=== PATIENT | male | born 1975 | race Caucasian/White ===

== ENCOUNTER 2020-02-07 02:35 | Outpatient (CLI) | payer OTHER, SELFPAY ==
[2020-02-07 18:16] LABS: SARS-CoV-2 RNA PCR Negative
== END 2020-02-07 02:36 | disposition home or self-care (01) ==
LOC: ANHCOVIDDT 02:36
PROVIDERS: PCP Physician Assistant; Visit Provider Urology
DX: Z01.812 Encounter for preprocedural laboratory examination (principal); Z20.828 Contact with and (suspected) exposure to other viral communicable diseases
CPT/HCPCS: 87635; C9803; U0003

== ENCOUNTER 2020-02-09 01:50 | Day surgery (SDC) | payer OTHER, SELFPAY ==
[2020-02-01 08:42] VITALS: BMI 25.1
[2020-02-09] VITALS (7 sets, daily range): BP systolic 120–141; BP diastolic 83–99; PULSE 66–92; RESP 14–16; TEMP 36.4–36.6; O2SAT 99–100
[2020-02-09] MEDS: ACETAMINOPHEN 500 MG TABLET 1000 MG PO (10:14)
[2020-02-09] MEDS: LACTATED RINGERS 1,000 ML 30 ML IV CONT ×2 (10:25→13:37)
--- NOTE | 2020-02-09 10:50 | WPDANESEPPF ---
Anes - Initial Pre Proc Eval Procedure: Operation Date: 02/09/20 12:00 Proposed Procedures p Right Spermatocelectomy, Possible Orchiopexy, - Abdirahman Dykes MD s Bilateral Vasectomy - Abdirahman Dykes MD Date/Time: 02/09/20 10:50 Surgeon: Abdirahman Dykes MD Pre Op Diagnosis: right spermatocele Patient Data Age: 44 Gender: M Height: 5 ft 10 in Weight: 79.3 kg Last Vital Signs Temp 36.6 C 02/09/20 10:32 Pulse 66 02/09/20 10:32 Resp 16 02/09/20 10:32 BP 141/92 H 02/09/20 10:32 Pulse Ox 99 02/09/20 10:32 Allergies Allergy/AdvReac Type Severity Reaction Status Date / Time No Known Allergies Allergy Verified 02/09/20 10:05 Home Medications Medication Instructions Recorded Confirmed Type No Home Medications 02/01/20 02/09/20 History Patient hx anesthesia problems: none Family hx anesthesia problems: none [facility] Past Medical History Medical History Ex-smoker Surgical History Surgical History (Updated 02/09/20 @ 10:51 by Sriram Rosas MD) History of surgery on wrist Social History Social History Smoking packs per day: 1 Smoking cigarettes per day: 20.0 Years smoked: 17 Smoking pack-years: 17.00 Smoking end date: 01/31/10 Living arrangements: with family Spiritual care concerns: No Anes - Eval Final PreProcedure Day of Procedure 02/09/20 10:50 Patient weight: normal Heart: regular rate and rhythm Lungs: clear to auscultation Airway: Mallampati scale class 1 Neurological: alert and oriented Last oral intake: >/= 8 hours ASA classification: II Emergent: no Anesthetic plan: proceed Anesthesia type and monitoring: general LMA and standard monitoring Informed Consent: The patient's anesthetic plan and its attendant risks and benefits were discussed with the patient/family/POA. Questions were solicited and answers provided to the satisfaction of the patient/family/POA.
--- NOTE | 2020-02-09 12:17 | WPDHPUPDATE1 ---
History and Physical Update Update Date/Time: 02/09/20 12:17 History and Physical has been reviewed, including an updated exam of the patient. There are NO changes in the patient's condition. Risks, benefits, and alternatives have been discussed and questions answered. Patient agrees to proceed with procedure.
[2020-02-09] MEDS: ceFAZolin 2 GM/D5W 50 ML 2 GM/50 ML BAG IVPB (12:23)
[2020-02-09] MEDS: BACITRACIN OINTMENT 15 GM TUBE 1 APPLIC TOPICAL (13:21)
--- NOTE | 2020-02-09 13:31 | PM.PROC ---
Procedure Note - Detailed Date of procedure: 02/09/20 Pre-op diagnosis: right spermatocele Post-op diagnosis: same Procedure performed: - Right spermatocelectomy - bilateral vasectomy Description of procedure: informed consent was obtained. Patient taken to operating room. He was shaved he was prepped in the normal sterile fashion. Preoperative IV antibiotics were given. A 4cm midline scrotal raphe incision was made. We dissected down to the right hemiscrotum where the right testicle was delivered through the incision. The tunica vaginalis was opened identifying a normal-appearing testicle with a 3cm spermatocele. We carefully dissected the spermatocele away from the epididymis and testicle, taking care not to injure the structures or the spermatic cord. We were able to free the spermatocele and then placed a clamp over the infundibulum and over sewed with a 2 0 Vicryl suture. We irrigated copiously there was good hemostasis. We then closed the potential space where the spermatocele had been present with 3 O Vicryl closure. We then returned the testis to the orthotopic position. the testicle was not particularly mobile this time, therefore we elected not to do a orchiopexy. The tunica vaginalis was closed with 3 O Vicryl suture instilling Marcaine prior to closure. At this point and pelvis and a vasectomy identify the right vas as it was from surrounding structures for 2cm of the vas was cut, the ends were cauterized, 3 0 chromic ties were placed on each end in a fascial interposition was performed. The excised portion of the vas was sent as specimen. Through the same incision and identical procedure was performed on the left side. At this point we irrigated copiously. Closed dartos layer with 2 0 Vicryl suture with close the deep dermal layer with 3 0 Vicryl suture in the skin with a 4 0 chromic suture. A dressing was placed scrotal support was applied and patient was taken to recovery room stable condition. Anesthesia: GLMA Surgeon: Abdirahman Dykes MD Estimated blood loss (mL): 10 Drains: No Packing: No Pathology: yes Complications: No immediate complications Condition: stable Disposition: PACU
--- NOTE | 2020-02-09 15:56 | SUR.PHASEII ---
PT INSTRUCTED TO BRING 2 SPERM SAMPLES TO NEXT APPOINTMENT; 2 CUPS AND BAG GIVEN TO PATIENT.
== END 2020-02-09 15:30 | disposition home or self-care (01) ==
PROVIDERS: PCP Physician Assistant; Visit Provider Urology
PROC: (CPT 54840; principal; 2020-02-09 12:00)
PROC: (CPT 55250; 2020-02-09 12:00)
DX: N43.41 Spermatocele of epididymis, single (principal); Z30.2 Encounter for sterilization; Z87.891 Personal history of nicotine dependence
CPT/HCPCS: 54840; 55250; 88300; 88304; A9270; J0690; J1100; J2250; J2405; J2704; J3010; J7120